=== PATIENT | female | born 1985 | race Caucasian/White ===

== ENCOUNTER → 2020-11-10 | Outpatient (CLI) | payer OTHER ==
--- NOTE | 2020-11-10 17:09 | DIREP ---
PROCEDURE:US DUPLEX EXTREM VEINS UNILATER/LIMITED-LT COMPARISON:None. INDICATIONS:LEFT LOWER EXTREMITY EDEMA TECHNIQUE:The left lower extremity was evaluated utilizing fine scale images with segmental compression, color Doppler, and spectral Doppler with respiratory variation and augmentation. FINDINGS: Common femoral vein:Patent Superficial femoral vein:Patent Popliteal vein:Patent Posterior tibial vein:Patent Anterior tibial vein:Patent Greater saphenous vein:Patent Waveforms: Within normal limits. CONCLUSION: 1. No evidence of deep venous thrombosis within the left lower extremity. Dictated by: Chad Valdez M.D. on 11/10/2020 at 05:08 PM
== END | disposition home or self-care (01) ==
LOC: RAD 15:53
DX: R22.42 Localized swelling, mass and lump, left lower limb (principal)
CPT/HCPCS: 93971